=== PATIENT | female | born 1980 | race Caucasian/White ===

== ENCOUNTER 2022-11-21 13:06 | Emergency (ER) | payer MEDICAID ==
[~2022-11-21] VITALS: Ht 160 cm; Wt 90.9 kg
[2022-11-21 13:16] VITALS: BP 124/74
[2022-11-21] MEDS ORDERED: BENZ-38 PO (14:36)
[2022-11-21] MEDS ORDERED: ALBU8HFA PO (14:36)
[2022-11-21] MEDS ORDERED: GUAI400T92 PO (14:36)
[2022-11-22] MEDS ORDERED: AZIT-83 PO (22:17)
== END 2022-11-21 15:02 | disposition home or self-care (01) ==
LOC: ER 13:07
DX: R05.9 Cough, unspecified (principal); J02.9 Acute pharyngitis, unspecified; F17.200 Nicotine dependence, unspecified, uncomplicated; Z79.899 Other long term (current) drug therapy
CPT/HCPCS: 99283

== ENCOUNTER 2022-11-22 18:55 | Emergency (ER) | payer MEDICAID ==
[~2022-11-22] VITALS: Ht 160 cm; Wt 90.0 kg
[~2022-11-22 18:55] MED LIST: ALBU8HFA PO; BENZ-38 PO; GUAI400T92 PO
[2022-11-22 19:01] VITALS: BP 113/81
[2022-11-22 19:06] LABS: BASOPHILS # (AUTO) 0.1 X10'3 (0-0.2); BASOPHILS % (AUTO) 0.6 % (0-1); EOSINOPHILS % (AUTO) 0.3 % (0-6); HEMATOCRIT 42.5 % (35.0-45.0); HEMOGLOBIN 14.2 g/dl (12.0-16.0); LYMPHOCYTES # (AUTO) 1.6 X10'3 (1.1-4.8); LYMPHOCYTES % (AUTO) 14.7 % (21-51); MEAN CORPUSCULAR HEMOGLOBIN 32.3 PG (27.0-31.0); MEAN CORPUSCULAR HGB CONC 33.5 g/dL (33.0-36.5); MEAN CORPUSCULAR VOLUME 96.4 FL (78-98); MEAN PLATELET VOLUME 10.4 FL (7.4-10.4); MONOCYTES # (AUTO) 0.6 X10'3 (0-0.9); MONOCYTES % (AUTO) 5.1 % (2-12); NEUTROPHILS # (AUTO) 8.7 X10'3 (1.8-7.7); NEUTROPHILS % (AUTO) 79.3 % (42-75); PLATELET COUNT 215 X10'3 (140-440); RED BLOOD COUNT 4.41 X10'6 (4.20-5.60); RED CELL DISTRIBUTION WIDTH 13.6 % (11.5-14.5); WHITE BLOOD COUNT 10.9 X10'3 (4.5-11.0)
[2022-11-22 19:21] LABS: ALANINE AMINOTRANSFERASE 20 U/L (12-78); ALBUMIN 3.5 G/DL (3.4-5.0); ALBUMIN/GLOBULIN RATIO 0.9 (1.1-1.5); ALKALINE PHOSPHATASE 55 IU/L (46-116); ANION GAP 9 (8-16); ASPARTATE AMINO TRANSFERASE 21 U/L (10-37); BILIRUBIN,TOTAL 0.7 MG/DL (0.1-1.0); BLOOD UREA NITROGEN 7 MG/DL (7-18); BUN/CREATININE RATIO 11.3 (6.6-38.0); CALCIUM 8.9 MG/DL (8.5-10.1); CHLORIDE 105 MMOL/L (99-107); CREATININE 0.62 MG/DL (0.40-0.90); GLUCOSE 151 MG/DL (70-104); POTASSIUM 3.3 MMOL/L (3.5-5.1); SODIUM 141 MMOL/L (135-145); TOTAL CARBON DIOXIDE 27.2 MMOL/L (24-32); TOTAL PROTEIN 7.3 G/DL (6.4-8.2); eGFR > 90 ML/MIN
[2022-11-22 19:31] LABS: MAGNESIUM 1.9 MG/DL (1.5-2.4)
[2022-11-22] MEDS ORDERED: dexamethasone sod phosphate 10mg/ml inj PO STA (21:57)
[2022-11-22] MEDS ORDERED: potassium Cl 20 mEq SR tablet PO STA (22:02)
[2022-11-22 22:10] LABS: D-DIMER 0.45 MG/L FEU (0-0.50)
[2022-11-22] MEDS ORDERED: AZIT-83 PO (22:17)
[2022-11-22] MEDS ORDERED: azithromycin 250mg tablet PO ONE (22:20)
== END 2022-11-22 22:26 | disposition home or self-care (01) ==
LOC: ER 18:56
DX: J20.9 Acute bronchitis, unspecified (principal); Z79.899 Other long term (current) drug therapy
CPT/HCPCS: 36415; 71046; 80053; 83735; 83880; 84484; 85025; 85379; 93005; 99285; J1100

== ENCOUNTER 2023-03-31 13:28 | Emergency (ER) | payer MEDICAID ==
[~2023-03-31] VITALS: Ht 160 cm; Wt 94.6 kg
[~2023-03-31 13:28] MED LIST changes: -ALBU8HFA PO; -BENZ-38 PO
[2023-03-31] MEDS ORDERED: dexamethasone sod phosphate 10mg/ml inj PO STA (14:46)
[2023-03-31] MEDS ORDERED: CYCL-1 PO (14:49)
[2023-03-31] MEDS ORDERED: IBUP-1984 PO (14:49)
[2023-03-31] MEDS ORDERED: METH4TAB3 PO (14:49)
[2023-03-31] MEDS ORDERED: orphenadrine citrate 60mg/2ml inj. IM ONE (14:50)
[2023-03-31] MEDS ORDERED: ketorolac trometh inj. 60 MG/2 ML VIAL IM ONE (14:50)
[2023-03-31 15:34] VITALS: BP 128/89
== END 2023-03-31 15:36 | disposition home or self-care (01) ==
LOC: ER 13:28
DX: S39.012A Strain of muscle, fascia and tendon of lower back, initial encounter (principal); X50.9XXA Other and unspecified overexertion or strenuous movements or postures, initial encounter; Y93.89 Activity, other specified; Y92.89 Other specified places as the place of occurrence of the external cause; Y99.8 Other external cause status
CPT/HCPCS: 96372; 99284; J1100; J1885; J2360

== ENCOUNTER 2023-04-02 14:00 | Emergency (ER) | payer MEDICAID ==
[~2023-04-02] VITALS: Ht 160 cm; Wt 110.0 kg
[~2023-04-02 14:00] MED LIST changes: +CYCL-1 PO; +IBUP-1984 PO; +METH4TAB3 PO
[2023-04-02 14:06] VITALS: BP 144/83
== END 2023-04-02 14:52 | disposition home or self-care (01) ==
LOC: ER 14:00
DX: S39.012A Strain of muscle, fascia and tendon of lower back, initial encounter (principal); Z79.899 Other long term (current) drug therapy; X58.XXXA Exposure to other specified factors, initial encounter; Y93.89 Activity, other specified; Y92.89 Other specified places as the place of occurrence of the external cause; Y99.8 Other external cause status
CPT/HCPCS: 99281

== ENCOUNTER 2024-03-07 10:58 | Outpatient (CLI) | payer MEDICAID ==
[~2024-03-07 10:58] MED LIST changes: -IBUP-1984 PO
== END 2024-03-07 23:59 | disposition home or self-care (01) ==
LOC: RAD 10:58
PROVIDERS: ATTEND Family Medicine
DX: M25.775 Osteophyte, left foot (principal); M79.672 Pain in left foot
CPT/HCPCS: 73610; 73630

== ENCOUNTER 2025-03-12 19:10 | Emergency (ER) | payer MEDICAID ==
[~2025-03-12] VITALS: Ht 160 cm; Wt 100.3 kg
[2025-03-12 19:11] VITALS: TEMP 98.1
--- NOTE | 2025-03-12 19:18 | ELECTROCARDIOGRAPH REPORT ---
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 Sharad Garcia Measurements Intervals [place] Rate: 89 P: 43 IN: 156 QRS: 12 QRSD: 102 T: 36 QT: 362 QTc: 441 Interpretive Statements Sinus rhythm Low voltage, precordial leads Abnormal R-wave progression, early transition Electronically Signed On 03-12-2025 20:38:[address] Sharad Garcia Please click the below link to view image of tracing.
[2025-03-12 19:31] LABS: BASOPHILS # (AUTO) 0.1 X10'3 (0-0.2); BASOPHILS % (AUTO) 1.1 % (0-1); EOSINOPHILS # (AUTO) 0.1 X10'3 (0-0.9); EOSINOPHILS % (AUTO) 1.8 % (0-6); HEMATOCRIT 40.9 % (35.0-45.0); HEMOGLOBIN 13.9 g/dl (12.0-16.0); LYMPHOCYTES # (AUTO) 2.4 X10'3 (1.1-4.8); LYMPHOCYTES % (AUTO) 34.8 % (21-51); MEAN CORPUSCULAR HEMOGLOBIN 32.7 PG (27.0-31.0); MEAN CORPUSCULAR HGB CONC 33.9 g/dL (33.0-36.5); MEAN CORPUSCULAR VOLUME 96.7 FL (78-98); MEAN PLATELET VOLUME 10.7 FL (7.4-10.4); MONOCYTES # (AUTO) 0.4 X10'3 (0-0.9); MONOCYTES % (AUTO) 6.5 % (2-12); NEUTROPHILS # (AUTO) 3.8 X10'3 (1.8-7.7); NEUTROPHILS % (AUTO) 55.8 % (42-75); PLATELET COUNT 197 X10'3 (140-440); RED BLOOD COUNT 4.23 X10'6 (4.20-5.60); RED CELL DISTRIBUTION WIDTH 13.6 % (11.5-14.5); WHITE BLOOD COUNT 6.8 X10'3 (4.5-11.0)
[2025-03-12 19:46] LABS: ALBUMIN 3.5 G/DL (3.4-5.0); ANION GAP 6 (8-16); BLOOD UREA NITROGEN 13 MG/DL (7-18); CALCIUM 8.5 MG/DL (8.5-10.1); CHLORIDE 108 MMOL/L (99-107); CREATININE 0.65 MG/DL (0.40-0.90); GLUCOSE 120 MG/DL (70-104); POTASSIUM 3.8 MMOL/L (3.5-5.1); PRO BRAIN NATRIURETIC PEPTIDE 137 PG/ML (0-125); SODIUM 143 MMOL/L (135-145); eCRCL 92 ML/MIN; eGFR > 90 ML/MIN
--- NOTE | 2025-03-12 19:58 | Physician Documentation ---
History of Present Illness ~ Chief Complaint: Chest Pain Stated Complaint: CP Time Seen by : 19:57 Primary Medical Doctor: none Mode of Arrival: POV HPI Patient presents to the emergency room for evaluation of chest tightness. Symptoms has been going on for the past few days. She has also noted some intermittent sharp pain to her left neck exacerbated by nothing. She reports that the chest discomfort is not exacerbated by anything or relieved by anything. She endorses multiple life stressors. She denies one-sided leg pain. She is not on control. She does not smoke and denies history of high blood pressure cholesterol or diabetes but does state she has a significant family history of heart disease. Medication Reconciliation Allergies: Coded Allergies: No Known Allergies (Unverified , 11/21/22) Scheduled Cyclobenzaprine* (Cyclobenzaprine*), 1 TAB PO Q8H Guaifenesin (Guaifenesin), 1 TAB PO Q8H Methylprednisolone (Medrol), 1 DOSPAK PO UD Past Medical History Past Medical History: No Pertinent History Past Surgical History: noncontributory Alcohol Use: None Drug Use: none Lives In: Home Occupation: employed Review of Systems ROS All review of systems negative except as per HPI Physical Exam Vital Signs: Temperature: 98.1, Source: Oral, Heart Rate: 88, Respiratory Rate: 18, BP: 150/78, Pulse Oximetry: 98, Weight: 100.300 Physical Exam General: Patient is awake, alert, oriented x4 in no acute distress Head: Normocephalic and atraumatic. Eyes: Conjunctival normal. EOMI. PERRL. ENT: Mucous membranes moist. Neck: Supple, trachea is midline. Chest: Clear to auscultation bilaterally without rales, rhonchi, or wheezes. There is no accessory muscle use or retractions. Cardiac: RRR without murmurs, gallops, or rubs. Abd: Soft, nondistended, nontender, with normoactive bowel sounds. No guarding, rebound, or rigidity. Extremities: Normal strength. Normal range of motion. No deformities or edema. No calf tenderness to palpation Progress Results/Orders Results/Orders Orders - GUMARO CARRASCO MD Chest,Single View (03/12/25 19:14) Monitor (03/12/25 19:14) Saline Lock (03/12/25 19:14) Oxygen (03/12/25 19:14) Hs Troponin I W Calculations (03/12/25 21:14) Hs Troponin I W Calculations (03/12/25 22:14) Completed Orders - GUMARO CARRASCO MD Chest,Single View (03/12/25 19:14) Cbc/Diff (03/12/25 19:14) BMP (03/12/25 19:14) PBNP (03/12/25 19:14) Electrocardiogram (03/12/25 19:14) Hs Troponin I W Calculations (03/12/25 19:14) Vital Signs 03/12/25 03/12/25 19:11 19:42 Temp 98.1 Pulse 88 Resp 19 18 B/P (MAP) 150/78 Pulse Ox 98 Laboratory Tests Test 03/12/25 19:17 White Blood Count 6.8 Red Blood Count 4.23 Hemoglobin 13.9 Hematocrit 40.9 Mean Corpuscular Volume 96.7 Mean Corpuscular Hemoglobin 32.7 H Mean Corpuscular Hemoglobin Concent 33.9 Red Cell Distribution Width 13.6 Platelet Count 197 Mean Platelet Volume 10.7 H Neutrophils (%) (Auto) 55.8 Lymphocytes (%) (Auto) 34.8 Monocytes (%) (Auto) 6.5 Eosinophils (%) (Auto) 1.8 Basophils (%) (Auto) 1.1 H Neutrophils # (Auto) 3.8 Lymphocytes # (Auto) 2.4 Monocytes # (Auto) 0.4 Eosinophils # (Auto) 0.1 Basophils # (Auto) 0.1 CBC Comment Sodium Level 143 Potassium Level 3.8 Chloride Level 108 H Carbon Dioxide Level 29.0 Anion Gap 6 L Blood Urea Nitrogen 13 Creatinine 0.65 Estimated GFR/1.73 m2 > 90 BUN/Creatinine Ratio 20.0 Glucose Level 120 H Calcium Level 8.5 Troponin I High Sensitivity 7 Pro-B-Type Natriuretic Peptide 137 H Albumin 3.5 Chemistry Comments EKG/XRAY/CT/US/VASC/MRI EKG : Additional Comment EKG interpreted by myself shows time of 1913, rate 89, sinus rhythm, normal axis, no ST changes Chest X-Ray : Additional Comments One view chest x-ray interpreted by myself is negative for effusions, infiltrates and normal cardiac silhouette. No pneumothorax Medical Decision Making Findings Patient presents to the emergency room for evaluation of chest pain as per HPI. Differentials include but are not limited to ACS, pneumothorax, pulmonary embolism, anxiety, aortic pathology, chest wall pain, reflux therefore emergent labs and imaging indicated. Chest x-ray reassuring as are labs. He had not feel patient requires a 2nd troponin given HPI and time of onset. Patient with heart score of one in his considered low cardiovascular risk. ER precautions discussed in the need to follow up with her doctor discussed. EKGs reassuring Departure Disposition: HOME / SELF CARE / HOMELESS Impression: Primary Impression: Chest pain Condition: Stable Discharge Instructions: Nonspecific Chest Pain, Adult Additional Instructions: Follow up with your doctor for further investigation Referrals: NO PRIMARY CARE PROVIDER (PCP) Education Educated: Patient Educated regarding: diagnosis, need for follow up Signature Scribe Signature: No scribe Attestation: The note accurately reflects work and decisions made by me.Gumaro Carrasco MD 03/12/25 20:14 GUMARO CARRASCO MD Mar 12, 2025 19:57
--- NOTE | 2025-03-12 20:22 | RADIOLOGY REPORT ---
EXAM: DI CHEST,SINGLE VIEW TECHNIQUE: Single frontal chest radiograph CLINICAL HISTORY: CP COMPARISON: None Findings/Impression: Frontal chest radiograph demonstrates no acute osseous or superficial soft tissue abnormalities. The trachea is midline. The cardiac silhouette and mediastinum are within normal limits. No pneumothorax, pleural effusions, or consolidations.
[2025-03-12 20:24] VITALS: BP 111/66; PULSE 74; RESP 16; O2SAT 97
== END 2025-03-12 20:28 | disposition home or self-care (01) ==
LOC: ER 19:11
DX: R07.9 Chest pain, unspecified (principal); Z79.899 Other long term (current) drug therapy
CPT/HCPCS: 36415; 71045; 80048; 83880; 84484; 85025; 93005; 99285

== ENCOUNTER 2025-09-15 08:47 | Emergency (ER) | payer MEDICAID ==
[~2025-09-15] VITALS: Ht 160 cm; Wt 97.0 kg
--- NOTE | 2025-09-15 09:07 | ELECTROCARDIOGRAPH REPORT ---
[facility] Test Date: 2025-09-15 Test Time: 09:05:28 Pat Name: BRENNON HWANG Department: [facility] Patient ID: [id number] Room: Gender: F Stars Specialist: : 1980 Requested By: VINNY REYES Order Number: [id number] Reading MD: Dr. KODY Zapata Measurements Intervals [place] Rate: 77 P: -25 MD: 154 QRS: 13 QRSD: 103 T: 20 QT: 364 QTc: 412 Interpretive Statements Sinus rhythm Low voltage, precordial leads Abnormal R-wave progression, early transition Baseline wander in lead(s) V6 Electronically Signed On 09-17-2025 18:09:[address] KODY Zapata Please click the below link to view image of tracing.
--- NOTE | 2025-09-15 10:04 | Physician Documentation ---
History of Present Illness General Chief Complaint: Dizziness Stated Complaint: DIZZINESS Time Seen by MD: 09:41 Primary Medical Doctor: none Mode of Arrival: Ambulatory History of Present Illness Initial Comments 45-year-old female with no significant PMH presented to the ED in view of dizziness since the last three days. Patient has started to have a headache three days ago which followed by the onset of dizziness. Patient describes that the room around her feels like spinning. These episodes have been on and off with last for about an hour with no triggers. This is associated with nausea and vomitings. Patient also has intermittent episodes of flutter in the chest and pain in the neck that is going up on the left side. Patient has generalized weakness and fatigue and has shortness of breaths whenever the patient is dizzy. Patient denies similar episodes in the past. Medication Reconciliation Allergies: Coded Allergies: No Known Allergies (Unverified , 09/15/25) Scheduled Cyclobenzaprine* (Cyclobenzaprine*), 1 TAB PO Q8H Guaifenesin (Guaifenesin), 1 TAB PO Q8H Meclizine Hcl (Meclizine Hcl), 1 TAB PO Q8H Methylprednisolone (Medrol), 1 DOSPAK PO UD Past Medical History Past Medical History: No Pertinent History Other Past Medical History: None Past Surgical History: noncontributory Other Past Surgical History: None Additional Comment Cardiac problems, unspecified in the 40s-dad Vascular disease--dad Smoking: Other Alcohol Use: None Drug Use: none Lives In: Home Occupation: employed Additional Comment Smokes half pack of cigarettes per day Does not know her primary care doctor Review of Systems Constitutional: Denies: fever GI: Reports: nausea; Denies: abdominal pain Neuro: Reports: dizziness Physical Exam Physical Exam Vital Signs: Temperature: 97.6, Source: Temporal, Heart Rate: 68, Respiratory Rate: 20, BP: 112/76, Pulse Oximetry: 98, Weight: 97.000 Oxygen Flow Rate: 0 Physical Exam General: Alert, awake, oriented, not in acute distress HEENT: PERRLA, no icterus, pallor, lymphadenopathy, carotid bruit Respiratory system: Bilateral vesicular breath sounds heard, no adventitious breath sounds CVS: S1-S2 heard, no murmurs/rubs/gallop GI: Soft, nontender, no organomegaly, no guarding/rigidity, bowel sounds present Neuro: No focal neurological deficits present Mental status exam: alert and consciousness, orientation, memory, speech - Cranial nerve test: Cranial nerves 2-12 intact - Motor system: Nutrition, Tone 3+, Power 5/5, no involuntary movements - Sensory system: Intact - Reflex testing: Biceps, triceps and knee reflexes 2+ - Cerebellar: Normal Extremities: No edema cyanosis clubbing/deformities Skin: Warm and dry Progress Results/Orders Results/Orders Completed Orders - REILLY JACOBS MD Electrocardiogram (09/15/25 09:04) Medications Received in ER Medications (Trade) Dose Ordered Sig/Lore Route PRN Reason Start Time Stop Time Status Last Admin Dose Admin (Antivert tablet) 25 mg ONCE ONCE PO 09/15/25 10:40 09/15/25 10:41 DC 09/15/25 10:48 25 MG (Valium tablet) 5 mg ONCE ONCE PO 09/15/25 11:30 09/15/25 11:41 DC 09/15/25 11:52 5 MG Vital Signs 09/15/25 09/15/25 09/15/25 09/15/25 08:58 09:10 10:14 10:41 Temp 97.6 Pulse 68 73 73 82 78 Resp 14 20 14 B/P (MAP) 112/76 109/70 (83) 98/54 108/69 118/76 Pulse Ox 98 100 O2 Flow Rate 0 0 09/15/25 09/15/25 09/15/25 11:52 12:13 15:01 Temp 98.2 Pulse 57 71 Resp 17 19 12 B/P (MAP) 90/51 (64) 108/59 Pulse Ox 98 96 O2 Flow Rate 0 Laboratory Tests Test 09/15/25 10:03 09/15/25 10:12 White Blood Count 5.8 Red Blood Count 4.12 L Hemoglobin 13.9 Hematocrit 41.0 Mean Corpuscular Volume 99.7 H Mean Corpuscular Hemoglobin 33.8 H Mean Corpuscular Hemoglobin Concent 33.9 Red Cell Distribution Width 13.5 Platelet Count 180 Mean Platelet Volume 11.3 H Neutrophils (%) (Auto) 65.7 Lymphocytes (%) (Auto) 25.5 Monocytes (%) (Auto) 7.2 Eosinophils (%) (Auto) 1.1 Basophils (%) (Auto) 0.5 Neutrophils # (Auto) 3.8 Lymphocytes # (Auto) 1.5 Monocytes # (Auto) 0.4 Eosinophils # (Auto) 0.1 Basophils # (Auto) 0.0 CBC Comment Platelet Estimate Normal Large Platelets Few Red Blood Cell Morphology Perf Basophilic Stippling Macrocytosis 1+ Sodium Level 143 Potassium Level 3.9 Chloride Level 109 H Carbon Dioxide Level 28.8 Anion Gap 5 L Blood Urea Nitrogen 8 Creatinine 0.50 Estimated GFR/1.73 m2 > 90 BUN/Creatinine Ratio 16.0 Glucose Level 98 Calcium Level 8.4 L Total Bilirubin 0.7 Aspartate Amino Transf (AST/SGOT) 21 Alanine Aminotransferase (ALT/SGPT) 28 Alkaline Phosphatase 37 L Troponin I High Sensitivity 8 Total Protein 6.8 Albumin 3.3 L Globulin 3.5 Albumin/Globulin Ratio 0.9 L HCG Beta Subunit 2 Chemistry Comments Urine Specimen Description Cln catch midstream Urine Color Yellow Urine Clarity Slightly cloudy Urine pH 6.0 Urine Specific [place] 1.025 Urine Protein Negative Urine Glucose (UA) Negative Urine Ketones Negative Urine Occult Blood Negative Urine Nitrite Negative Urine Bilirubin Negative Urine Urobilinogen 0.2 Urine Leukocyte Esterase Negative Urine RBC 3-10 Urine WBC 0-4 Urine Squamous Epithelial Cells Few Urine Amorphous Urates 1+ Urine Bacteria Few Volume Urine Centrifuged 10 ml Urine Comment Urine Opiates Screen Negative Urine Methadone Screen Negative Urine Fentanyl Screen Negative Urine Barbiturates Screen Negative Urine Phencyclidine Screen Negative Urine Amphetamines Screen Negative Urine Benzodiazepines Screen Negative Urine Cocaine Screen Negative Urine Cannabinoids Screen Negative Drug Screen Comment EKG/XRAY/CT/US/VASC/MRI CT : Impression I personally interpreted the CT scan, and this shows no intracranial hemorrhage or mass Medical Decision Making Additional information obtaine: N/A Findings A 45-year-old male with no significant past medical history presented to the ED in view of dizziness. Pt's blood picture is negative for anemia, dehydration, . Trops are negative. Orthostats: negative Differential Diagnosis Vertigo, UTI, any cardiac ischemic events, anemia, dehydration, , drug intoxication, stroke Addendum I supervised the resident during the evaluation and treatment of this patient. I also performed an independent history and exam. The patient does not have it evidence of acute medical or surgical emergency at this time. Overall this seems most consistent with peripheral vertigo. She will be discharged with meclizine and Sunita maneuver instructions. Return precautions given. Reilly Jacobs MD Departure Time of Disposition: 14:52 Disposition: 01 HOME / SELF CARE / HOMELESS Impression: Primary Impression: Vertigo Condition: Improved Discharge Instructions: Benign Positional Vertigo, Vertigo Departure Forms: Excuse form Work or School Excused From: Work Excuse beginning now through the following date: Sep 17, 2025 Referrals: NO PRIMARY CARE PROVIDER (PCP) Prescriptions Meclizine Hcl (MECLIZINE HCL) 12.5 Mg Tablet 1 TAB PO Q8H for dizziness for 10 Days, #30 TAB 0 Refills Prov: REILLY JACOBS MD 09/15/25 Education Educated: Patient, Family Educated regarding: diagnosis, treatment Signature Scribe Signature: None Attestation: Document created by the resident, reviewed by the ED physician NAZARIO GOVEA, RES Sep 15, 2025 10:04 REILLY JACOBS MD Sep 15, 2025 14:54
[2025-09-15 10:22] LABS: MEAN PLATELET VOLUME 11.3 FL (7.4-10.4); RED CELL DISTRIBUTION WIDTH 13.5 % (11.5-14.5)
[2025-09-15 10:30] LABS: CREATININE 0.50 MG/DL (0.40-0.90); TOTAL CARBON DIOXIDE 28.8 MMOL/L (24-32); eCRCL 119 ML/MIN; eGFR > 90 ML/MIN
[2025-09-15 10:44] LABS: LEUKOCYTE ESTERASE ,URINE NEGATIVE (Neg); NITRITES, URINE NEGATIVE (Neg); OCCULT BLOOD,URINE NEGATIVE (Neg)
[2025-09-15 10:49] LABS: UA COLLECTION TYPE CLN CATCH MIDSTREAM
[2025-09-15 10:50] LABS: AMORPHOUS URATES 1+; SQUAMOUS EPITHELIAL CELL,UR FEW /LPF (FEW)
[2025-09-15 10:50] LABS: LARGE PLATELETS FEW; PLATELET ESTIMATE NORMAL
[2025-09-15 11:03] LABS: URINE AMPHETAMINE SCREEN NEGATIVE (Neg); URINE BARBITUATE SCREEN NEGATIVE (Neg); URINE BENZODIAZEPINES SCREEN NEGATIVE (Neg); URINE CANNABINOID SCREEN NEGATIVE (Neg); URINE COCAINE SCREEN NEGATIVE (Neg); URINE METHADONE SCREEN NEGATIVE (Neg); URINE OPIATE SCREEN NEGATIVE (Neg); URINE PHENCYCLIDINE SCREEN NEGATIVE (Neg)
--- NOTE | 2025-09-15 14:26 | RADIOLOGY REPORT ---
EXAM: CT CT HEAD INDICATION: vertigo COMPARISON: None TECHNIQUE: CT of the head without intravenous contrast. Radiation Dose Information: CT Dose: CTDI volume is 60 mGy. Dose-length product is 951 mGy*cm The dose indicators for CT are the volume Computed Tomography (CT) Dose Index (CTDIvol) and the Dose Length Product (DLP), and are measured in units of mGy and mGy-cm, respectively. These indicators are not patient dose, but values generated from the CT scanner acquisition factors. The report includes radiation exposure data for exposures received during this examination. FINDINGS: The ventricles and sulci are normal in size and configuration for the patient's age. There is no mass-effect, hemorrhage, midline shift, or abnormal extra-axial fluid collection visible. No calvarial fracture. Essentially clear visualized paranasal sinuses. Mastoid air cells are clear. IMPRESSION: No acute intracranial hemorrhage or mass effect.
[2025-09-15] MEDS ORDERED: MECL-231 PO (14:53)
[2025-09-15 15:01] VITALS: BP 108/59; PULSE 71; RESP 12; TEMP 98.2; O2SAT 96
== END 2025-09-15 15:03 | disposition home or self-care (01) ==
LOC: ER 08:47
DX: R42 Dizziness and giddiness (principal); R11.10 Vomiting, unspecified; R06.02 Shortness of breath; R53.83 Other fatigue; F17.210 Nicotine dependence, cigarettes, uncomplicated; R10.20 Pelvic and perineal pain unspecified side; Z79.899 Other long term (current) drug therapy
CPT/HCPCS: 36415; 70450; 80053; 80305; 81001; 84484; 84702; 85008; 85025; 93005; 99285; J8597